=== PATIENT | female | born 1980 | race Caucasian/White ===

== ENCOUNTER 2017-08-29 01:53 | Observation (INO) | payer BC ==
[~2017-08-29] VITALS: Ht 170.2 cm; Wt 81.8 kg
[2017-08-29] MEDS ORDERED: LIOT5TAB3 HE (02:12)
[2017-08-29] MEDS ORDERED: LEVO50TA5 PO (02:12)
[2017-08-29] MEDS ORDERED: BIRTH CONTROL (02:12)
[2017-08-29] MEDS ORDERED: SODIUM CHLORIDE FLUSH 10ML SYR IVF ONE (02:30)
[2017-08-29] MEDS ORDERED: ONDANSETRON 2MG/ML, 2ML IVPush ONE (02:30)
[2017-08-29] MEDS ORDERED: SODIUM CHLORIDE 0.9% 1,000ML IVBOLUS ONE (02:30)
[2017-08-29] MEDS ORDERED: MORPHINE SULFATE 4 MG/ML, 1ML IVPush PRN ×3 (02:30→14:30)
[2017-08-29] MEDS ORDERED: ONDANSETRON 2MG/ML, 2ML ONE ×5 (02:32→13:37)
[2017-08-29] MEDS ORDERED: morphine SULFATE 10 MG/ML, 1ML ONE ×4 (02:32→12:25)
[2017-08-29 02:36] LABS: HEMATOCRIT 40.4 % (34.6-47.8); WHITE BLOOD COUNT 9.2 x10^3/uL (3.4-10)
[2017-08-29 02:45] LABS: ASPARTATE AMINO TRANSFERASE 6 U/L (15-37); BLOOD UREA NITROGEN 11 mg/dL (7-18)
[2017-08-29] MEDS ORDERED: OMNIPAQUE 350 MG/ML, 100ML BOTTLE ONE (03:25)
[2017-08-29] MEDS ORDERED: CEFOTETAN PMX 1GM/50ML 0 ML ONE (03:50)
[2017-08-29] MEDS ORDERED: SODIUM CHLORIDE 0.9% 1,000 ML IV ONE (03:54)
[2017-08-29] MEDS ORDERED: CEFOTETAN PMX 2GM/50ML 50 ML IV ONE (04:00)
[2017-08-29] MEDS ORDERED: ONDANSETRON 2MG/ML, 2ML IVPush PRN ×3 (04:00→14:00)
[2017-08-29] MEDS ORDERED: SODIUM CHLORIDE FLUSH 10ML SYR IVF PRN (04:00)
[2017-08-29 05:05] VITALS: BP 114/74
[2017-08-29 06:29] VITALS: BP 107/70
[2017-08-29] MEDS ORDERED: DIPHENHYDRAMINE 50 MG/ML, 1ML IVPush PRN (08:00)
[2017-08-29] MEDS: MORPHINE SULFATE 4 MG/ML, 1ML IVPush PRN ×2 (09:10→12:27)
[2017-08-29] MEDS ORDERED: EPINEPHRINE 1 MG/ML, 1ML ONE (12:54)
[2017-08-29] MEDS ORDERED: BUPIVACAINE/PF 0.5% ONE (12:54)
[2017-08-29] MEDS ORDERED: DEXAMETHASONE 4 MG/ML, 1ML ONE ×3 (13:03→13:37)
[2017-08-29] MEDS ORDERED: ROCURONIUM 10 MG/ML,10ML ONE ×2 (13:03→13:37)
[2017-08-29] MEDS ORDERED: MIDAZOLAM 1 MG/ML, 2ML ONE ×2 (13:03→13:22)
[2017-08-29] MEDS ORDERED: SUCCINYLCHOLINE 20 MG/ML, 10ML ONE ×2 (13:03→13:37)
[2017-08-29] MEDS ORDERED: CEFAZOLIN 1,000 MG ONE ×3 (13:03→13:37)
[2017-08-29] MEDS ORDERED: KETOROLAC 30 MG/1 ML ONE ×2 (13:03→13:53)
[2017-08-29] MEDS ORDERED: FENTANYL PF 250 MCG/5ML ONE ×2 (13:03→13:22)
[2017-08-29] MEDS ORDERED: PROPOFOL 10 MG/ML, 20ML ONE ×2 (13:03→13:37)
[2017-08-29] MEDS ORDERED: MEPERIDINE/PF 25MG/0.5ML IVPush PRN (14:00)
[2017-08-29] MEDS ORDERED: MIDAZOLAM 1 MG/ML, 2ML IV PRN (14:00)
[2017-08-29] MEDS ORDERED: HYDROmorphone 1 MG/ML, 1ML IV PRN (14:00)
[2017-08-29] MEDS ORDERED: ACETAMINOPHEN 325 MG TABLET PO PRN (14:00)
[2017-08-29] MEDS ORDERED: ALBUTEROL SULFATE 2.5 MG/3 ML NPPB PRN (14:00)
[2017-08-29] MEDS ORDERED: FENTANYL PF 100 MCG/2ML IV PRN (14:00)
[2017-08-29] MEDS ORDERED: hydrALAzine 20 MG/ML, 1ML IV PRN (14:00)
[2017-08-29] MEDS ORDERED: PROMETHAZINE 25 MG/ML, 1ML IV PRN (14:00)
[2017-08-29] MEDS ORDERED: LABETALOL 5MG/ML, 20ML IV PRN (14:00)
[2017-08-29] MEDS ORDERED: OXYcodone 5 MG/5 ML ORAL.SOL UDC PO PRN (14:00)
[2017-08-29] MEDS: POTASSIUM CHLORIDE 20 MEQ in D5%-0.45% NACL 1,000 ML IV SCH (14:19)
[2017-08-29] MEDS ORDERED: DIPHENHYDRAMINE 25 MG CAPSULE PO PRN (14:30)
[2017-08-29] MEDS ORDERED: ACETAMINOPHEN 650 MG/20.3 ML UDC PO PRN (14:30)
[2017-08-29] MEDS ORDERED: KETOROLAC 30 MG/1 ML IV PRN (14:30)
[2017-08-29] MEDS ORDERED: ACETAMINOPHEN 650 MG/20.3 ML UDC ONE (14:31)
[2017-08-29] MEDS ORDERED: OXYcodone 5 MG/5 ML ORAL.SOL UDC ONE (14:31)
[2017-08-29] MEDS: CEFOTETAN PMX 1GM/50ML 50 ML IVPB SCH (17:18)
[2017-08-29 18:50] VITALS: BP 109/56
[2017-08-29 23:47] VITALS: BP 92/51
[2017-08-30] MEDS: POTASSIUM CHLORIDE 20 MEQ in D5%-0.45% NACL 1,000 ML IV SCH (03:47)
[2017-08-30 04:00] VITALS: BP 93/55
[2017-08-30] MEDS: CEFOTETAN PMX 1GM/50ML 50 ML IVPB SCH (05:03)
[2017-08-30 06:46] VITALS: BP 95/60
[2017-08-30] MEDS ORDERED: ENOXAPARIN 40 MG/0.4 ML SQ SCH (09:00)
[2017-08-30] MEDS ORDERED: ONDA4TAB7 PO (11:21)
[2017-08-30] MEDS ORDERED: HYDR-882 PO (11:21)
== END 2017-08-30 11:30 | disposition home or self-care (01) ==
LOC: ED 02:57 → INTOOBSV 03:54 → EDIP 03:54 → 4NOR 04:48 → DCLOUNGE 08-30 11:10
PROVIDERS: ADMIT Surgery; ATTEND Surgery
DX: K35.80 Unspecified acute appendicitis (principal); Z83.3 Family history of diabetes mellitus
CPT/HCPCS: 36415; 44970; 74177; 80053; 81003; 83690; 84703; 85025; 88304; 96365; 96372; 96375; 96376; 99285; G0378; J0330; J0690; J1100; J1650; J1885; J2250; J2405; J2704; J3010; J7030; Q9967; S0074; J0171; J3490